=== PATIENT | male | born 1950 | race Caucasian/White ===

== ENCOUNTER 2016-09-27 09:12 | Emergency (ER) | payer OTHER ==
[2016-09-27] MEDS ORDERED: NS 500 ML IV ONE (09:19)
[2016-09-27 09:44] VITALS: RESP 16
--- NOTE | 2016-09-27 09:46 | UCPHY ---
H & P Time Seen by Provider: 09/27/16 09:18 Patient Type: Established HPI/ROS: HPI Lower abdominal pain. 66-year-old male by private vehicle. This patient has a history of diverticulitis. He complains of lower mid to left abdominal pain starting yesterday evening and identical to pain he has had associated with previous episodes of diverticulitis. He has been treated as an outpatient in the past for diverticulitis. He reports that his last bowel movement was about a 0.5 hour prior to arrival. No bloody or melenic stool. Last meal was breakfast earlier this morning. No previous abdominal surgical history. He has not had a fever. No other complaints. ROS: Constitutional: No fever, no chills. No weakness. Eyes: No discharge. No changes in vision. ENT: No sore throat. No nasal congestion or rhinorrhea. Respiratory: No cough. No shortness of breath. Cardiac: No chest pain, no palpitations. Gastrointestinal: As above, no vomiting, no diarrhea. Genitourinary: No hematuria. No dysuria or increased frequency with urination. Musculoskeletal: No back pain. No neck pain. No myalgias or arthralgias. Skin: No rashes. Neurological: No headache. No focal weakness or altered sensation. Past medical history: Diverticulitis. Social history: Here by himself. Physical Exam: General Appearance: Alert, no distress. This patient is responding to questions appropriately and in full sentences. This patient appears well- hydrated and well-nourished. Eyes: Pupils equal and round no pallor or injection. No lid edema, erythema or injection. Respiratory: There are no retractions, lungs are clear to auscultation with good air movement bilaterally. Cardiovascular: Regular rate and rhythm. No murmur. Gastrointestinal: Abdomen is soft with lower mid tenderness on palpation, no guarding, no masses, bowel sounds normal. No focal tenderness at McBurney's point. No Santoyo sign. Neurological: Motor sensory function is grossly intact. Cranial nerves are normal. Gait is normal. Skin: Warm and dry, no rashes. Musculoskeletal: Neck is supple and nontender. Extremities are symmetrical. All joints range without pain or impingement. Psychiatric: No agitation. No depression. Database: EKG: Imaging: CT scan of abdomen and pelvis with IV contrast: Procedures: Emergency department course: IV placed. He was placed on a monitor. He was started on IV normal saline with 500 cc to be given over the next hour. I discussed CT imaging with him. He endorses. He is declining pain medication at this time. 10:05 a.m., patient is now declining CT imaging. He explains to me that his pain is identical to previous episodes of diverticulitis. He has been very stable in the emergency department. Repeat abdominal exam he is soft and without significant tenderness on palpation. He is requesting antibiotics and discharged home. His vital signs were reviewed and are unremarkable. Medication allergies reviewed. He will be treated with Augmentin. He was given 875 mg in the emergency department. I will prescribe him this. He is to follow up with his primary care physician for re-evaluation on Thursday. Return to Urgent Care precautions were thoroughly reviewed with him. All of his questions were answered. He was discharged in good condition. Differential Diagnosis: The differential diagnosis on this patient includes but is not limited to diverticulitis, colitis, ileitis, nephrolithiasis, urinary tract infection. This represents a partial list of diagnoses considered. These considerations are based on history, physical exam, past history, reassessment and diagnostic testing. Smoking Status: Former smoker Constitutional: Initial Vital Signs Temperature (C) 36.5 C 09/27/16 09:41 Heart Rate 66 09/27/16 09:41 Respiratory Rate 16 09/27/16 09:41 Blood Pressure 135/79 H 09/27/16 09:41 O2 Sat (%) 99 09/27/16 09:41 O2 Delivery Mode Room Air Allergies/Adverse Reactions: No Known Allergies Allergy (Unverified 09/27/16 09:39) Home Medications: Medication Instructions Recorded Amlodipine Besylate/Benazepril 1 each PO DAILY 09/11/12 [Lotrel 5-40 mg Capsule] Citalopram [celeXA 20 MG (RX)] 20 mg PO DAILY 09/11/12 Glucosamine Sulfate [Glucosamine 500 mg PO BID 09/11/12 Sulfate 500 MG (OTC)] Ibuprofen [Motrin 600 mg (RX)] 600 mg PO BID PRN 09/11/12 Pharmacy Completed 09/11/12 09/11/12 Amoxicillin/Clavulanate Pot 875 mg PO BID 10 Days 09/27/16 [Augmentin 875 mg tab] Aspirin EC 81 mg (*) 09/27/16 Bentyl 10 MG (*) 09/27/16 Medical Decision Making - Data Points Laboratory Results: Laboratory Results 09/27/16 09:45 09/27/16 09:45 09/27/16 09:45 WBC 6.74 10^3/uL (3.80-9.50) RBC 4.92 10^6/uL (4.40-6.38) Hgb 15.3 g/dL (13.7-17.5) Hct 43.1 % (40.0-51.0) MCV 87.6 fL (81.5-99.8) MCH 31.1 pg (27.9-34.1) MCHC 35.5 g/dL (32.4-36.7) RDW 12.6 % (11.5-15.2) Plt Count 166 10^3/uL (150-400) MPV 9.8 fL (8.7-11.7) Neut % (Auto) 78.6 H % (39.3-74.2) Lymph % (Auto) 14.2 L % (15.0-45.0) [place] % (Auto) 6.1 % (4.5-13.0) Eos % (Auto) 0.4 L % (0.6-7.6) Baso % (Auto) 0.4 % (0.3-1.7) Nucleat RBC Rel Count 0.0 % (0.0-0.2) Absolute Neuts (auto) 5.29 10^3/uL (1.70-6.50) Absolute Lymphs (auto) 0.96 L 10^3/uL (1.00-3.00) Absolute Monos (auto) 0.41 10^3/uL (0.30-0.80) Absolute Eos (auto) 0.03 10^3/uL (0.03-0.40) Absolute Basos (auto) 0.03 10^3/uL (0.02-0.10) Absolute Nucleated RBC 0.00 10^3/uL (0-0.01) Immature Gran % 0.3 % (0.0-1.1) Immature Gran # 0.02 10^3/uL (0.00-0.10) Sodium 140 mEq/L (134-144) Potassium 4.3 mEq/L (3.5-5.2) Chloride 106 mEq/L (97-110) Carbon Dioxide 23 mEq/l (22-31) Anion Gap 11 mEq/L (8-16) BUN 18 mg/dL (7-23) Creatinine 1.0 mg/dL (0.7-1.3) Estimated GFR > 60 Glucose 130 H mg/dL (70-100) Calcium 9.3 mg/dL (8.5-10.4) Urine Color YELLOW Urine Appearance CLEAR Urine pH 5.5 (5.0-7.5) Ur Specific [place] 1.025 (1.002-1.030) Urine Protein NEGATIVE (NEGATIVE) Urine Ketones NEGATIVE (NEGATIVE) Urine Blood NEGATIVE (NEGATIVE) Urine Nitrate NEGATIVE (NEGATIVE) Urine Bilirubin NEGATIVE (NEGATIVE) Urine Urobilinogen 0.2 EU (0.2-1.0) Ur Leukocyte Esterase NEGATIVE (NEGATIVE) Ur Culture Indicated? NOT INDICATED (NI) Urine Glucose NEGATIVE (NEGATIVE) Departure - Departure Disposition: Home, Routine, Self-Care Clinical Impression: Lower abdominal pain, Diverticulitis Condition: Good Instructions: Diverticulitis (ED), Diverticulitis Diet (ED) Additional Instructions: Read and follow provided instructions. Follow-up with your primary care physician in 1-2 days for re-evaluation. Take medication as prescribed through entire course of treatment. Return to the emergency department for worsening pain, vomiting, fever, bloody stool or other serious concerns. Referrals: Alecia Maier PA [Primary Care Provider] - As per Instructions Prescriptions: Amoxicillin/Clavulanate Pot [Augmentin 875 mg tab] 875 mg PO BID 10 Days - PQRS PQRS Measurement: 134: Depression screening and followup, PRIME MD-PHQ2 (12 years and older) Over the last 2 weeks, how often have you been bothered by any of the following problems? 1. Feeling down, depressed, or hopeless? 2. Little interest or pleasure in doing things? Answered no to both questions. 130: Documentation of medications. Reviewed all patient medications, doses, route and frequency. 226: Do you smoke? No. 47: 65 and older: Advanced care planning. Patient designates surrogate decision maker as spouse. 51: 18 years old and older with diagnosis of COPD, spirometry performance. NA 52: 18 years old and older with COPD and symptoms of COPD or FEV1<60% predicted prescribed a B Agonist. NA
[2016-09-27 09:50] LABS: % IMMATURE GRANULYOCYTES 0.3 % (0.0-1.1); ABSOLUTE IMMATURE GRANULOCYTES 0.02 10^3/uL (0.00-0.10); ADD DIFF? NO; ADD MORPH? NO; ADD SCAN? NO; ATYPICAL LYMPHOCYTE FLAG 0 (0-99); FRAGMENT RBC FLAG 0 (0-99); HEMATOCRIT 43.1 % (40.0-51.0); HEMOGLOBIN 15.3 g/dL (13.7-17.5); LEFT SHIFT FLG 0 (0-99); LIPEMIA HEMOLYSIS FLAG 90 (0-99); MEAN CELL HEMOGLOBIN 31.1 pg (27.9-34.1); MEAN CELL HEMOGLOBIN CONCENTR. 35.5 g/dL (32.4-36.7); MEAN CELL VOLUME 87.6 fL (81.5-99.8); MEAN PLATELET VOLUME 9.8 fL (8.7-11.7); PLATELET CLUMPS FLAG 10 (0-99); PLATELET COUNT 166 10^3/uL (150-400); RED BLOOD CELL COUNT 4.92 10^6/uL (4.40-6.38); RED CELL DISTRIBUTION WIDTH 12.6 % (11.5-15.2)
[2016-09-27 09:51] LABS: COLOR YELLOW; LEUKOCYTE ESTERASE,URINE NEGATIVE (NEGATIVE); NITRITE,URINE NEGATIVE (NEGATIVE); PH,URINE 5.5 (5.0-7.5)
[2016-09-27] MEDS ORDERED: IOPAMIDOL (ISOVUE-300) 50 ML VIAL IV ONE (09:52)
[2016-09-27 10:01] LABS: ANION GAP 11 mEq/L (8-16); CALCIUM 9.3 mg/dL (8.5-10.4); CARBON DIOXIDE 23 mEq/l (22-31); CHLORIDE 106 mEq/L (97-110); GLOMERULAR FILTRATION RATE > 60; GLUCOSE 130 mg/dL (70-100); POTASSIUM 4.3 mEq/L (3.5-5.2); SODIUM 140 mEq/L (134-144)
[2016-09-27] MEDS ORDERED: AMOXICILLIN/CLAVULANATE POT 875/125 MG TAB PO ONE (10:11)
[2016-09-27 10:26] VITALS: BP 143/82; PULSE 53; TEMP 97.5; O2SAT 93
== END 2016-09-27 10:26 | disposition home or self-care (01) ==
LOC: CED 09:12
DX: K57.92 Diverticulitis of intestine, part unspecified, without perforation or abscess without bleeding (principal)
CPT/HCPCS: 80048-PO; 81003-PO; 85025-PO; 96360-PO; 99215-PO; G0463-PO; Q9967

== ENCOUNTER 2016-10-25 10:27 | Emergency (ER) | payer OTHER ==
[2016-10-25 10:41] VITALS: BP 139/70; RESP 16; TEMP 97.7
[2016-10-25] MEDS ORDERED: IPRATROPIUM/ALBUTEROL 3 ML DEYVIAL IH ONE (11:06)
--- NOTE | 2016-10-25 11:10 | UCPHY ---
H & P Time Seen by Provider: 10/25/16 10:58 Patient Type: Established HPI/ROS: This patient presents with a chief complaint of a nonproductive cough which began 10 days ago. Is also had some chest tightness and some shortness of breath and believes that he has been wheezing. He denies fever, malaise, fever , nasal congestion, sore throat or ear pain. He has never had wheezing previously. REVIEW OF SYSTEMS: Constitutional: No fever, no fatigue or malaise Eyes: No complaints ENT: Denies sore throat, nasal congestion, ear pain Respiratory: Cough, wheezing, shortness of breath on exertion Cardiac: No palpitations Gastrointestinal: Not addressed Genitourinary: Not addressed Musculoskeletal: No myalgias Skin: No rash Neurological: [] Smoking Status: Former smoker Physical Exam: GENERAL: Well-appearing, well-nourished and in no acute distress. HEAD: Atraumatic, normocephalic. EYES: sclera anicteric, conjunctiva are normal. ENT: TMs normal, nares patent, oropharynx clear without exudates. Moist mucous membranes. NECK: Normal range of motion, supple without lymphadenopathy or JVD. LUNGS: Breath sounds clear to auscultation bilaterally and equal. No wheezes rales or rhonchi. The expiratory phase of respiration is prolonged but I can hear no wheezing even on forced expiration. HEART: Regular rate and rhythm EXTREMITIES: Normal range of motion, NEUROLOGICAL: Cranial nerves II through XII grossly intact. Normal speech, normal gait. PSYCH: Normal mood, normal affect. SKIN: Warm, dry, normal turgor, no visible rashes or lesions. Constitutional: Initial Vital Signs Temperature (C) 36.5 C 10/25/16 10:38 Heart Rate 75 10/25/16 10:38 Respiratory Rate 16 10/25/16 10:38 Blood Pressure 139/70 H 10/25/16 10:38 O2 Sat (%) 94 10/25/16 10:38 O2 Delivery Mode Room Air Allergies/Adverse Reactions: No Known Allergies Allergy (Unverified 10/25/16 10:41) Home Medications: Medication Instructions Recorded Albuterol [Albuterol HFA 8 gm] 2 puffs IH QID #1 mdi 10/25/16 Celexa 10/25/16 Lotrel 10/25/16 Medical Decision Making ED Course/Re-evaluation: The patient was given a DuoNeb and afterwards felt that he was able to breathe more easily but that his cough had increased. Re-examination revealed free air or air movement and normalization of the inspiratory expiratory ratio. Differential Diagnosis: I find nothing that would suggest that this patient has pneumonia or any other infectious process that would be improved with antibiotics. - Data Points Medications Given: Discontinued Medications Albuterol/Ipratropium (Duoneb) 3 ml IH EDNOW ONE Stop: 10/25/16 11:07 Last Admin: 10/25/16 11:10 Dose: 3 ml Departure - Departure Disposition: Home, Routine, Self-Care Clinical Impression: Acute bronchitis with bronchospasm Condition: Good Instructions: Acute Bronchitis (ED), Bronchospasm (ED) Additional Instructions: If your symptoms have not resolved in 1 week you should be re-evaluated. You should be seen sooner if he develops fever, increasing shortness of breath or other worrisome symptoms. Use the inhaler at least 4 times daily but it is safe to use it every 2 hours if necessary. Referrals: Alecia Maier PA [Primary Care Provider] - As per Instructions Prescriptions: Albuterol [Albuterol HFA 8 gm] 2 puffs IH QID #1 mdi - PQRS PQRS Measurement: Not applicable
[2016-10-25 11:57] VITALS: PULSE 55; O2SAT 96
== END 2016-10-25 11:45 | disposition home or self-care (01) ==
LOC: CED 10:27
DX: J20.9 Acute bronchitis, unspecified (principal); Z87.891 Personal history of nicotine dependence
CPT/HCPCS: 99214-PO; G0463-PO

== ENCOUNTER 2016-10-27 12:06 | Emergency (ER) | payer OTHER ==
[2016-10-27] MEDS ORDERED: IPRATROPIUM/ALBUTEROL 3 ML DEYVIAL ONE (12:40)
[2016-10-27] MEDS ORDERED: IPRATROPIUM/ALBUTEROL 3 ML DEYVIAL IH ONE (12:43)
[2016-10-27 13:09] VITALS: BP 145/71; TEMP 97.5
--- NOTE | 2016-10-27 13:10 | UCPHY ---
H & P Patient Type: Established Time Seen by Provider: 10/27/16 12:57 HPI/ROS: CHIEF COMPLAINT: Shortness of breath HISTORY OF PRESENT ILLNESS: The patient is a 66-year-old otherwise healthy man who comes to the Urgent Care complaining of increasing shortness of breath and productive cough. He states that his symptoms began about a week ago. He does have a history of childhood asthma but has not required an inhaler for years. He was seen here 3 days ago and diagnosed with bronchitis and started on albuterol. He states that this helped for a little while but his symptoms seem to be worsening again. He has not had a fever. No chest pain. Here at triage he was 87% on room air. The patient had wheezing at triage and was started on a DuoNeb prior to my interview. He also has a remote history of AFib but has not had any with me in several years and does not take blood thinners. REVIEW OF SYSTEMS: Constitutional: denies: chills, fever, recent illness, recent injury EENTM: denies: blurred vision, double vision, nose congestion Respiratory: See HPI Cardiac: denies: chest pain, irregular heart rate, lightheadedness, palpitations Gastrointestinal/Abdominal: denies: abdominal pain, diarrhea, nausea, vomiting, blood streaked stools Genitourinary: denies: dysuria, frequency, hematuria, pain Musculoskeletal: denies: joint pain, muscle pain Skin: denies: lesions, rash, jaundice, bruising Neurological: denies: headache, numbness, paresthesia, tingling, dizziness, weakness Hematologic/Lymphatic: denies: blood clots, easy bleeding, easy bruising Immunologic/allergic: denies: HIV/AIDS, transplant EXAM: GENERAL: Well-appearing, well-nourished and in no acute distress. HEAD: Atraumatic, normocephalic. EYES: Pupils equal round and reactive to light, extraocular movements intact, sclera anicteric, conjunctiva are normal. ENT: TMs normal, nares patent, oropharynx clear without exudates. Moist mucous membranes. NECK: Normal range of motion, supple without lymphadenopathy or JVD. LUNGS: Right lower lobe rhonchi, HEART: Regular rate and rhythm without murmurs, rubs or gallops. ABDOMEN: Soft, nontender, normoactive bowel sounds. No guarding, no rebound. No masses appreciated. BACK: No CVA tenderness, no spinal tenderness, step-offs or deformities EXTREMITIES: Normal range of motion, no pitting or edema. No clubbing or cyanosis. NEUROLOGICAL: Cranial nerves II through XII grossly intact. Normal speech, normal gait. 5/5 strength, normal movement in all extremities, normal sensation PSYCH: Normal mood, normal affect. SKIN: Warm, dry, normal turgor, no visible rashes or lesions. Source: Patient Exam Limitations: No limitations - Medical/Surgical History Hx Asthma: Yes Hx Chronic Respiratory Disease: No Hx Diabetes: No Hx Cardiac Disease: Yes Hx Renal Disease: No Hx Cirrhosis: No Hx Alcoholism: No Hx HIV/AIDS: No Hx Splenectomy or Spleen Trauma: No Other PMH: PMHx: Rapid A-fib , ASTHMA, DIVERTICULITIS. PSHx: elbow R, knee R , HERNIA ING. ,TONSILS, HTN, DEPRESSION - Family History Significant Family History: Hypertension - Social History Smoking Status: Former smoker Alcohol Use: Sober Drug Use: None Constitutional: Initial Vital Signs Temperature (C) 36.4 C 10/27/16 12:40 Heart Rate 88 10/27/16 12:40 Respiratory Rate 20 10/27/16 12:40 Blood Pressure 145/71 H 10/27/16 12:40 O2 Sat (%) 87 L 10/27/16 12:40 O2 Delivery Mode Room Air O2 (L/minute) 2 Allergies/Adverse Reactions: No Known Allergies Allergy (Verified 10/27/16 13:04) Home Medications: Medication Instructions Recorded Albuterol [Albuterol HFA 8 gm] 2 puffs IH QID #1 mdi 10/25/16 Celexa 10/25/16 Lotrel 10/25/16 AZITHROMYCIN [Z-PACK] 250 mg PO DAILY #4 tab 10/27/16 predniSONE 60 mg PO DAILY #15 tab 10/27/16 Medical Decision Making - Diagnostics Imaging: X-ray: chest x-ray was obtained. I viewed the images myself on the PACS system. My interpretation of the images is: Consistent with bronchitis. The radiologist interpretation is pending. ED Course/Re-evaluation: 2:30 p.m. the patient is saturating 93% on room air after albuterol treatment. We discussed his x-ray results. Have started azithromycin and will add steroids. I will give him 1 more albuterol treatment before he goes any as an inhaler to use as well. He is happy with this plan and declines further workup or testing at this time. Differential Diagnosis: Partial list of the Differential diagnosis considered include but were not limited to; bronchitis, pneumonia, reactive airway disease and although unlikely based on the history and physical exam, I also considered PE, acute coronary disease, arrhythmia. I discussed these differential diagnoses and the plan with the patient as well as the usual and expected course. The patient understands that the diagnosis is provisional and that in medicine we are not always correct and that further workup is often warranted. Usual and customary warnings were given. All of the patient's questions were answered. The patient was instructed to return to the emergency department should the symptoms at all worsen or return, otherwise to followup with the physician as we discussed. - Data Points Medications Given: Discontinued Medications Albuterol (Proventil Neb) 3 ml IH EDNOW ONE Stop: 10/27/16 13:49 Last Admin: 10/27/16 14:42 Dose: 3 ml Albuterol (Proventil Neb) 3 ml IH EDNOW ONE Stop: 10/27/16 14:34 Last Admin: 10/27/16 15:10 Dose: 3 ml Albuterol/Ipratropium (Duoneb) 3 ml IH EDNOW ONE Stop: 10/27/16 12:44 Last Admin: 10/27/16 12:44 Dose: 3 ml Azithromycin (Zithromax) 500 mg PO EDNOW ONE PRN Reason: Protocol Stop: 10/27/16 13:49 Last Admin: 10/27/16 14:20 Dose: 500 mg Prednisone (Prednisone) 60 mg PO EDNOW ONE Stop: 10/27/16 14:43 Last Admin: 10/27/16 15:05 Dose: 60 mg Departure - Departure Disposition: Home, Routine, Self-Care Clinical Impression: Bronchitis Condition: Fair Instructions: Acute Bronchitis (ED) Referrals: Alecia Maier PA [Primary Care Provider] - As per Instructions Prescriptions: AZITHROMYCIN [Z-PACK] 250 mg PO DAILY #4 tab predniSONE 60 mg PO DAILY #15 tab - PQRS PQRS Measurement: 134: Depression screening and followup, PRIME MD-PHQ2 (12 years and older) Over the last 2 weeks, how often have you been bothered by any of the following problems? 1. Feeling down, depressed, or hopeless? 2. Little interest or pleasure in doing things? Patient answered no to both 1 and 2 130: Documentation of medications. Reviewed all patient medications, doses, route and frequency. 226: Do you smoke? No. 47: 65 and older: Advanced care planning. Patient designates surrogate decision maker as spouse . Patient has advanced directive. 51: 18 years old and older with diagnosis of COPD, spirometry performance. Spirometry not performed; equipment not available. 52: 18 years old and older with COPD and symptoms of COPD or FEV1<60% predicted prescribed a B Agonist. Not applicable
[2016-10-27] MEDS ORDERED: ALBUTEROL 3 ML DEYVIAL IH ONE ×2 (13:48→14:33)
[2016-10-27] MEDS ORDERED: AZITHROMYCIN 250 MG TAB PO ONE (13:48)
[2016-10-27] MEDS ORDERED: predniSONE 20 MG TAB PO ONE (14:42)
[2016-10-27 15:34] VITALS: PULSE 68; RESP 18; O2SAT 93
--- NOTE | 2016-10-27 15:54 | DX ---
PA and Lateral Chest History: Chest congestion. Comparison: PA and lateral chest September 11, 2012. Findings: There is mild peribronchial thickening without focal consolidation. The lungs are hyperexpa nded. There is no pneumothorax or pleural effusion. Heart size is upper normal. Mild degenerative justyn nge is present in the spine with contiguous osteophytes in the thoracic spine compatible with DISH. Impression: Mild peribronchial thickening suggesting airways disease/bronchitis.
== END 2016-10-27 15:20 | disposition home or self-care (01) ==
LOC: CED 12:06
DX: J20.9 Acute bronchitis, unspecified (principal); J45.909 Unspecified asthma, uncomplicated; Z87.891 Personal history of nicotine dependence
CPT/HCPCS: 71020-PO; 99214-PO; G0463-PO

== ENCOUNTER → 2018-11-29 | Outpatient (CLI) | payer OTHER | LOC: BMCIMAGING 12:52 | PROVIDERS: ATTEND Physician Assistant Medical | DX: J98.4 Other disorders of lung (principal); R06.00 Dyspnea, unspecified; R05 Cough; M25.78 Osteophyte, vertebrae ==